=== PATIENT | female | born 1945 | race Caucasian/White ===

== ENCOUNTER 2021-03-08 19:40 | Emergency (ER) | payer OTHER ==
[~2021-03-08] VITALS: Ht 165.1 cm; Wt 64.4 kg
[2021-03-08 20:18] VITALS: BP 155/71
[2021-03-08] MEDS ORDERED: ACETAMINOPHEN 500 MG TABLET PO ONE (20:30)
== END 2021-03-08 22:54 | disposition home or self-care (01) ==
LOC: EDH 19:40
DX: S02.2XXA Fracture of nasal bones, initial encounter for closed fracture (principal); E11.9 Type 2 diabetes mellitus without complications; Z98.890 Other specified postprocedural states; Y08.89XA Assault by other specified means, initial encounter; Y93.89 Activity, other specified; Y92.89 Other specified places as the place of occurrence of the external cause; Y99.8 Other external cause status
CPT/HCPCS: 70450; 70486

== ENCOUNTER → 2021-04-27 | Outpatient (CLI) | payer OTHER ==
[~2021-04-27] MED LIST: IOHEXOL-350 75 ML VIAL IV ONE
== END | disposition home or self-care (01) ==
LOC: RAH 10:24
PROVIDERS: ATTEND Internal Medicine
DX: K57.30 Diverticulosis of large intestine without perforation or abscess without bleeding (principal); M51.35 Other intervertebral disc degeneration, thoracolumbar region; I70.0 Atherosclerosis of aorta
CPT/HCPCS: 74177; Q9967

== ENCOUNTER 2025-05-22 16:35 | Observation (INO) | payer OTHER ==
[~2025-05-22] VITALS: Ht 162.6 cm; Wt 60.3 kg
--- NOTE | 2025-05-22 16:47 | EKG ---
[facility] Test Date: 2025-05-22 Test Time: 16:41:15 Pat Name: KENROY LOCKE Department: EDH Room: ED Gender: F Chicken Tender: [id number] : 1945 Requested By: LEON MARIE Order Number: [id number] Reading MD: Efrain Dean Measurements Intervals [place] Rate: 80 P: 55 OH: 176 QRS: 37 QRSD: 80 T: 58 QT: 368 QTc: 424 Interpretive Statements Sinus rhythm No previous ECG available for comparison Electronically Signed On 05-24-2025 08:21:16 ANGULAR DEVELOPER by Efrain Dean Please click the below link to view image of tracing.
--- NOTE | 2025-05-22 16:51 | ERN ---
ED Note History of Present Illness Stated Complaint: ABNORMAL LABS, HIGH CALCIUM Chief Complaint: Abnormal Labs Time Seen by MD: 16:37 Time Seen by Midlevel: 16:40 Dictation: 79-year-old female coming in from [place] with complaints of feeling genera lized lethargy confusion, irritable, trouble concentrating. They did blood work and showed hypercalcemia at 13.2 . Was sent here for re-evaluation. Patient at this time denies any other complaints as far as chest pain, chest discomfort, fever, nausea and vomiting or diarrhea. Allergies: Coded Allergies: No Known Drug Allergies (Unverified Allergy, Unknown, 03/08/21) Past Medical History Past Medical History: Diabetes-Type II Additional Past Medical Hx: HX OF Falls Surgical History: Other Surgical History Other: KNEE SURGERY X 2 Social History: Negative Review of System Dictation Constitutional: Complaining of generalized fatigue Eyes: Negative for injury, pain,redness, and discharge ENT: Negative for injury,pain or swelling Cardiovascular: Negative for chest pain, palpitations, and edema Respiratory: Negative for shortness of breath, cough, and wheezing, Abdomen/GI: Negative for abdominal pain, nausea, vomiting, diarrhea, and constipation Back: Negative for injury and pain : Negative for injury, bleeding and discharge MS/Extremity: Negative for injury and deformity Skin: Negative for rash, and discoloration Neuro: Negative for headache, weakness, numbness, tingling, and seizure Psych: Negative for suicide ideation, homicidal ideation, and hallucinations Review of Systems: was completed Initial Vital Sign VS Vital Signs Date Time Temp Pulse Resp B/P (MAP) Pulse Ox O2 Delivery O2 Flow Rate FiO2 05/22/25 16:36 98.2 85 16 129/47 100 Room Air 05/22/25 18:15 0 21 Physical Exam Dictation General: awake, alert, NAD Head/Face: Normocephalic, atraumatic Eyes: PERRL, EOMI, vision at baseline ENT: oral cavity clear, TMs clear, no signs of infection Neck: Trachea midline, supple, no nuchal rigidity Cardiovascular: RRR, normal S1/S2, No MRGs, no JVD Respiratory: CTAB, no respiratory distress, No rales or wheezes Abdomen: Soft, non-tender, non-distended, normal bowel sounds, no guarding or rebound. Skin: Warm, dry, normal turgor, no rash MS/Extremity: Pulses equal, no cyanosis, neurovascular intact, FROM Neuro: COAx4, GCS 15, strength 5/5, CN 2-12 intact, normal cerebellar exam, normal gait, Psych: Normal behavior, mood, and affect normal Results (Laboratory/Radiology) Laboratory/Radiology Laboratory Tests Test 05/22/25 16:45 White Blood Count 8.7 K/uL (4.8-10.8) Red Blood Count 4.00 MIL/uL (4.00-5.50) Hemoglobin 12.0 g/dL (12.0-16.0) Hematocrit 36.3 % (36-48) Mean Corpuscular Volume 90.8 fL (79-99) Mean Corpuscular Hemoglobin 30.0 pg (27.0-33.0) Mean Corpuscular Hemoglobin Concent 33.1 g/dL (32.0-36.0) Red Cell Distribution Width 13.0 % (11.0-15.5) Platelet Count 280 K/uL (130-400) Mean Platelet Volume 9.7 fL (7.5-10.5) Immature Granulocyte % (Auto) 0.3 % (0-1) Neutrophils (%) (Auto) 65.9 % (40.0-77.0) Lymphocytes (%) (Auto) 17.9 % (21.0-51.0) L Monocytes (%) (Auto) 10.3 % (3.0-13.0) Eosinophils (%) (Auto) 5.0 % (0.0-8.0) Basophils (%) (Auto) 0.6 % (0.0-5.0) Neutrophils # (Auto) 5.7 K/uL (1.8-7.7) Lymphocytes # (Auto) 1.6 K/uL (1.0-4.8) Monocytes # (Auto) 0.9 K/uL (0.1-1.0) Eosinophils # (Auto) 0.43 K/uL (0.00-0.70) Basophils # (Auto) 0.05 K/uL (0.00-0.20) Absolute Immature Granulocyte (auto 0.03 K/uL (0-1) Nucleated Red Blood Cells 0.0 % (0.0-0.19) Sodium Level 137 mmol/L (136-145) Potassium Level 3.8 mmol/L (3.5-5.1) Chloride Level 99 mmol/L (101-111) L Carbon Dioxide Level 29 mmol/L (21-32) Blood Urea Nitrogen 35 mg/dL (7-18) H Creatinine 1.4 mg/dL (0.5-1.0) H Glomerular Filtration Rate Calc 38 mL/min (>90) Random Glucose 228 mg/dL (70-105) H Total Calcium 12.0 mg/dL (8.5-10.1) *H Labs Reviewed?: Yes ED Course ED Course Orders Procedure Category Date Status Time Cbc With Differential LAB 05/22/25 Complete 16:37 Basic Metabolic Panel LAB 05/22/25 Complete 16:37 Urinalysis Profile LAB 05/22/25 Logged 16:37 12 Lead Ekg Tracing- EKG 05/22/25 Complete Technical 16:37 0.9%Nacl 1000ml (Ns PHA 05/22/25 Complete 1000ml) 17:57 Current Medications Medications (Trade) Dose Ordered Sig/Marcial Route PRN Reason Start Time Stop Time Status Last Admin Dose Admin Sodium Chloride 1,000 ml @ 1,000 mls/hr Q1H STAT IV 05/22/25 17:57 05/22/25 18:56 DC Vital Signs Date Time Temp Pulse Resp B/P (MAP) Pulse Ox O2 Delivery O2 Flow Rate FiO2 05/22/25 18:15 97.9 77 18 135/54 98 Room Air* 0 21 05/22/25 16:36 98.2 85 16 129/47 100 Room Air Medical Decision Making MDM MDM: 79-year-old female coming in from [facility] with complaints of feeling gen eralized lethargy confusion, irritable, October concentrating. They did blood work and showed hypercalcemia at 13.2 . Was sent here for re-evaluation. Patient at this time denies any other complaints as far as chest pain, chest discomfort, fever, nausea and vomiting or diarrhea.CBC shows a leukocytosis, no anemia, no thrombocytopenia. Chemistry shows mild elevated creatinine 1.4, and calcium of 12. 1 L of NS ordered. Patient will be admitted for treatment of hypercalcemia. Differential diagnosis: Lab ear, hypercalcemia, dehydration, urinary tract infection Rationale: Tests considered and ordered secondary to shared decision making include: labs, ECG and radiology Previous outside records reviewed: Old ER visits. Risk of complication and/or morbidity or mortality of patient management: None Medications-Per medication reconciliation Need for hospitalization: Patient does meet criteria for hospitalization. Need for emergency major/minor surgery: No There are no social concerns with this patient. Prescription drug management Prescriptions will include symptomatic care Patient's prior external medical records from other ER visits were reviewed by me as indicated. Prior testing and results from previous visits were reviewed. Prior tests were taken into account with medical decision making and resource utilization, independent historian/historians were used to obtain complete [facility] history. I independently interpreted the test that were performed, results were reviewed by me and considered findings on radiology if ordered. Medical management and examination interpretation discussions were had by me with other qualified healthcare professionals as indicated for the patient's care. DX & DISP Disposition: Inpatient Departure Impression: Primary Impression: Hypercalcemia Condition: Stable Referrals: ALENA CHOWDHURY MD (PCP) I have reviewed the case, and I agree with, Diagnosis and Plan LEON MARIE [facility] May 22, 2025 16:51
[2025-05-22 16:52] LABS: IMMATURE GRANULOCYTE ABSOLUTE 0.03 K/uL (0-1); NUCLEATED RED BLOOD CELLS 0.0 % (0.0-0.19); PLATELET COUNT (AUTO) 280 K/uL (130-400); RED BLOOD CELL COUNT(AUTO) 4.00 MIL/uL (4.00-5.50); RED CELL DISTRIBUTION WIDTH 13.0 % (11.0-15.5); WHITE BLOOD COUNT (AUTO) 8.7 K/uL (4.8-10.8)
[2025-05-22 17:08] LABS: CREATININE 1.4 mg/dL (0.5-1.0); GLOMERULAR FILTR. RATE CALC 38.0 mL/min (>90); GLUCOSE,RANDOM 228.0 mg/dL (70-105); SODIUM SERUM 137.0 mmol/L (136-145); UREA NITROGEN, BLOOD 35.0 mg/dL (7-18)
[2025-05-22] MEDS: 0.9%NACL 1000ML 1,000 ML IV STA (19:54)
[2025-05-22 21:04] LABS: APPEARANCE,URINE CLEAR (CLEAR); GLUCOSE, URINE (UA) NEGATIVE (NEGATIVE); LEUKOCYTE ESTERASE ,URINE NEGATIVE Leu/uL (NEGATIVE); NITRATE,URINE NEGATIVE (NEGATIVE); OCCULT BLOOD,URINE NEGATIVE (NEGATIVE)
[2025-05-22 21:06] LABS: ADD UA MICROSCOPIC YES
[2025-05-22 21:07] LABS: HYALINE CASTS, URINE 0-1 /LPF (0-1 /LPF); SQUAMOUS EPITHELIAL CELL,UR RARE /HPF (0-2); WBC CLUMP RARE /HPF (0-1)
--- NOTE | 2025-05-22 21:20 | HP ---
[facility] HISTORY & PHYSICAL Date Patient Seen: May 22, 2025 Time of Visit: 21:14 Supervising Physician: Dr. William Mckenzie Primary Care Physician: Dr Rob Pacheco Outpatient Specialists: [ ] Inpatient Consults: [ ] PROBLEM LIST: Hypercalcemia, POA DM type 2, with hyperglycemia, poorly controlled, POA PLAN: Admit to medical-surgical floor VS per protocol Keep SBP less than 160 P.r.n. hydralazine labetalol Keep serum glucose less than 150 ISS and fingerstick per unit protocol Start NS at 125 cc/hour Complete bedrest for now Heart healthy diet Bilateral SCDs Facilitate order labs and imaging CBC, CMP, magnesium level daily HPI: 79-year-old female with past medical history of DM type 2 who presented to ED via private vehicle here for evaluation of elevated calcium level. Patient was seen and examined in ED with no relatives present at bedside. Apparently patient was sent to ER by his PCP for evaluation of hypercalcemia. In ED CBC was done showed no acute infection or anemia, her chemistry signific ant for calcium level above 12, her UA showed no acute infection. Patient denies any bone disease, or any history of cancer. Patient denies any headache, chest pain, shortness of breath, abdominal pain, bone pain, muscle ache, or flu- like symptoms. Patient also denies any history of smoking, alcohol intake, or illicit drug use. PAST MEDICAL HX: see above PAST SURGICAL HX: noncontributory SOCIAL HISTORY: No tobacco, ETOH, or illicit drug use Coded Allergies: No Known Drug Allergies (Unverified Allergy, Unknown, 03/08/21) REVIEW OF SYSTEMS: 12 point ROS reviewed with patient. Pertinent positives mentioned above. Otherwise negative. PHYSICAL EXAM: GENERAL: alert, weak, awake oriented x 3 HEENT: EOMI, Sclera non icteric, moist mucosa NECK: Supple, no JVD, trachea midline LUNGS: Clear breath sounds bilaterally. No wheezes HEART: Regular rate and rhythm. Normal S1 and S2, without murmurs ABD: Abdomen soft, nontender. Bowel sounds present EXT: No clubbing cyanosis or edema NEURO: Alert and oriented to person, follows commands Vital Signs (last 8hr) Date Time Temp Pulse Resp B/P (MAP) Pulse Ox O2 Delivery O2 Flow Rate FiO2 05/22/25 18:15 97.9 77 18 135/54 98 Room Air* 0 21 12/18/25 16:36 98.2 85 16 129/47 100 Room Air LABS: Hematology Labs: Test 05/22/25 16:45 Range/Units White Blood Count 8.7 4.8-10.8 K/uL Red Blood Count 4.00 4.00-5.50 MIL/uL Hemoglobin 12.0 12.0-16.0 g/dL Hematocrit 36.3 36-48 % Mean Corpuscular Volume 90.8 79-99 fL Mean Corpuscular Hemoglobin 30.0 27.0-33.0 pg Mean Corpuscular Hemoglobin Concent 33.1 32.0-36.0 g/dL Red Cell Distribution Width 13.0 11.0-15.5 % Platelet Count 280 130-400 K/uL Mean Platelet Volume 9.7 7.5-10.5 fL Immature Granulocyte % (Auto) 0.3 0-1 % Neutrophils (%) (Auto) 65.9 40.0-77.0 % Lymphocytes (%) (Auto) 17.9 L 21.0-51.0 % Monocytes (%) (Auto) 10.3 3.0-13.0 % Eosinophils (%) (Auto) 5.0 0.0-8.0 % Basophils (%) (Auto) 0.6 0.0-5.0 % Neutrophils # (Auto) 5.7 1.8-7.7 K/uL Lymphocytes # (Auto) 1.6 1.0-4.8 K/uL Monocytes # (Auto) 0.9 0.1-1.0 K/uL Eosinophils # (Auto) 0.43 0.00-0.70 K/uL Basophils # (Auto) 0.05 0.00-0.20 K/uL Absolute Immature Granulocyte (auto 0.03 0-1 K/uL Nucleated Red Blood Cells 0.0 0.0-0.19 % Chemistry Labs: Test 05/22/25 16:45 Range/Units Sodium Level 137 136-145 mmol/L Potassium Level 3.8 3.5-5.1 mmol/L Chloride Level 99 L 101-111 mmol/L Carbon Dioxide Level 29 21-32 mmol/L Blood Urea Nitrogen 35 H 7-18 mg/dL Creatinine 1.4 H 0.5-1.0 mg/dL Glomerular Filtration Rate Calc 38 >90 mL/min Random Glucose 228 H 70-105 mg/dL Total Calcium 12.0 *H 8.5-10.1 mg/dL DIAGNOSTICS / RADIOLOGY RESULTS: [ ] PLAN NEURO: Minimize central acting medications as possible. Maintain fall precautions, adequate lighting during the day PULMONARY: Supplemental 02 as needed. Maintain aspiration precautions at all times CARDIOVASCULAR: Follow hemodynamics. Vital signs per facility protocol GI & NUTRITION: Continue with nutritional support. Continue stool softeners and laxatives as needed. KIDNEYS & ELECTROLYTES: Strict monitoring of intake, output and overall fluid balance. Avoid nephrotoxic medications to the extent possible. Medications to be dosed according to renal function. Monitor electrolytes and replace as needed ENDOCRINE: Maintain blood glucose between 100-180 at all times. Hypoglycemia protocol in place INFECTIOUS DISEASE: Trend temperature, WBC and procalcitonin level Follow cultures, deescalate antibiotics as soon as possible. Panculture if new onset fever ONCOLOGY/HEMATOLOGY/COAGULATION: Monitor for s/s of bleeding Monitor hemoglobin, coagulation studies as needed SKIN: Pressure ulcer prevention per facility protocol Specialty mattress ORTHO/REHAB: Continue PT/OT Prophylaxis: Continue GI and DVT prophylaxis Code Status: Full Resuscitation Disposition: TBD Supervising physician: MIRNA Byrne AGACNP May 22, 2025 21:19
[2025-05-22] MEDS ORDERED: HYDROcodone/APAP 5/325 1 TAB TABLET PO PRN ×2 (21:30)
[2025-05-22] MEDS ORDERED: ALBUTEROL 0.083% 2.5 MG/3 ML INH IH PRN (21:30)
[2025-05-22] MEDS: 0.9%NACL 1000ML 1,000 ML IV SCH (22:12)
[2025-05-22] MEDS ORDERED: MECO10005 PO (22:53)
[2025-05-22] MEDS ORDERED: DULO60CA64 PO (22:53)
[2025-05-22] MEDS ORDERED: GLIP5TAB15 PO (22:53)
[2025-05-22] MEDS ORDERED: CEPH500C2 PO (22:53)
[2025-05-22] MEDS ORDERED: METF-446 PO (22:53)
[2025-05-22] MEDS ORDERED: SIMV-46 PO (22:53)
[2025-05-22] MEDS ORDERED: LEVO88TA7 PO (22:53)
[2025-05-23 06:40] LABS: CREATININE 1.2 mg/dL (0.5-1.0); GLOMERULAR FILTR. RATE CALC 46.0 mL/min (>90); GLUCOSE,RANDOM 171.0 mg/dL (70-105); PHOSPHORUS 2.6 mg/dL (2.5-4.9); SODIUM SERUM 137.0 mmol/L (136-145); UREA NITROGEN, BLOOD 27.0 mg/dL (7-18)
[2025-05-23 06:45] LABS: IMMATURE GRANULOCYTE ABSOLUTE 0.02 K/uL (0-1); NUCLEATED RED BLOOD CELLS 0.0 % (0.0-0.19); PLATELET COUNT (AUTO) 211 K/uL (130-400); RED BLOOD CELL COUNT(AUTO) 3.40 MIL/uL (4.00-5.50); RED CELL DISTRIBUTION WIDTH 13.1 % (11.0-15.5); WHITE BLOOD COUNT (AUTO) 8.7 K/uL (4.8-10.8)
[2025-05-23] MEDS: MAGNESIUM 2GM PREMIX 50ML 50 ML IV PRN (07:13)
[2025-05-23 07:27] VITALS: PULSE 83; RESP 18; O2SAT 98
--- NOTE | 2025-05-23 07:48 | NUR ---
PATIENT REFUSED BLOOD GLUCOSE CHECK. DID NOT WANT HER FINGERS POKED. PT STATES "I WANT ANOTHER FORM CHECKING MY GLUCOSE, I DONT WANT MY FINGERS TO GET POKED".
[2025-05-23] MEDS: ASCORBIC ACID 500 MG TAB PO SCH (08:42)
--- NOTE | 2025-05-23 10:03 | NUR ---
DCP:HOME Pt currently lives at home with her . Pt denies having any DME, home health, or provider services. Pt states that prior to coming to the hospital pt was able to complete ADLs independently. PCP is Dr Irma Oro and uses [facility] for any RX needs. At DC pt will want to go home and family can assist with transportation.
--- NOTE | 2025-05-23 13:53 | DS ---
[facility] DISCHARGE SUMMARY Date Patient Seen: May 23, 2025 Time of Visit: 13:49 Supervising Physician: Dr Iverson Primary Care Physician: Dr Rob Pacheco Outpatient Specialists: [ ] Inpatient Consults: [ ] PROBLEM LIST: Hypercalcemia, POA 2/2 dehydration - resolved DM type 2, with hyperglycemia, poorly controlled, POA HOSPITAL COURSE: HPI (per admitting provider) 79-year-old female with past medical history of DM type 2 who presented to ED via private vehicle here for evaluation of elevated calcium level. Patient was seen and examined in ED with no relatives present at bedside. Apparently patient was sent to ER by his PCP for evaluation of hypercalcemia. In ED CBC was done showed no acute infection or anemia, her chemistry significant for calcium level above 12, her UA showed no acute infection. Patient denies any bone disease, or any history of cancer. Patient denies any headache, chest pain, shortness of breath, abdominal pain, bone pain, muscle ache, or flu-like symptoms. Patient also denies any history of smoking, alcohol intake, or illicit drug use. Today patient is seen sitting up in a stretcher in the ED with no signs of acute distress. Patient is awake alert and oriented x3. Patient remains on room air denies chest discomfort, chest pain or dyspnea. Patient was treated with IV fluids overnight and responded well. Patient's calcium level decreased to 10 as per most recent labs. Patient's PTH was within normal limits. Patient's TSH was within normal limits. Patient has been advised and encouraged to increase fluid intake to help prevent recurrent dehydration. Patient verbalized understanding. Patient has been advised to follow up with PCP in the next 1-2 days. Patient reported that she takes iaae-bje-pehwlea calcium tablets sometimes. Patient has been advised to discontinue calcium tabs until follow up by her PCP. Patient verbalized understanding. Vital signs are stable. Labs are within normal limits. Medication reconciliation has been completed. Education regarding current diagnosis has been provided to the patient. All questions have been answered. Patient to be discharged home. The patient was treated for the following problems: ACTIVE PROBLEM LIST FOR THE HOSPITALIZATION: Hypercalcemia, POA 2/2 dehydration - resolved DM type 2, with hyperglycemia, poorly controlled, POA CHRONIC PROBLEMS: continue previous management per PCP unless otherwise indicated BRUSHER TENDER FINDINGS/RECOMMENDATIONS: [ ] PROCEDURES: as mentioned above DISCHARGE MEDICATIONS: See DC med rec Pt hemodynamically stable and afebrile at time of discharge. PCP notified of patients admission, hospital course and discharge. Continued Medications: Duloxetine HCl (Duloxetine HCl) 60 Mg Capsule.dr 1 CAP PO DAILY Glipizide (Glipizide) 5 Mg Tablet 1 TAB PO DAILY Levothyroxine Sodium (Levothyroxine Sodium) 88 Mcg Tablet 1 TAB PO DAILY Mecobalamin (B12 Active) 1,000 Mcg Tab.chew 1 TAB PO QWEEK for 30 Days, #30 TAB 0 Refills Metformin HCl (Metformin HCl) 1,000 Mg Tablet 1 TAB PO DAILYDINNER Simvastatin (Simvastatin) 40 Mg Tablet 1 TAB PO HS Discontinued Medications: Cephalexin (Cephalexin) 500 Mg Capsule 1 CAP PO BID PHYSICAL EXAM: GENERAL: alert, weak, awake oriented x 3 HEENT: EOMI, Sclera non icteric, moist mucosa NECK: Supple, no JVD, trachea midline LUNGS: Clear breath sounds bilaterally. No wheezes HEART: Regular rate and rhythm. Normal S1 and S2, without murmurs ABD: Abdomen soft, nontender. Bowel sounds present EXT: No clubbing cyanosis or edema NEURO: Alert and oriented to person, follows commands FOLLOW-UP: Follow-up with PCP in 2-3 days RECOMMENDATIONS: See Discharge Instructions This case was seen and discussed with my supervising physician. More than 30 minutes spent on discharge process, including evaluation of the patient, discussion with nursing staff, medication reconciliation and follow-up appointments ATTESTATION BY PHYSICIAN I attest that I reviewed and discussed the case with the Physician Sign Board Erector as well as agree with the Physician Sign Board Erector's findings, plans of care, and documentation above. William Trinidad MD, ECTOR N FNP May 23, 2025 13:53
[2025-05-23 15:14] VITALS: BP 120/48; PULSE 76; RESP 15; TEMP 98.2; O2SAT 97
--- NOTE | 2025-05-23 18:17 | NUR ---
PATIENT BEING DISCHARGED. PATIENT HAD A STEADY AND BALANCE GAIT. PATIENT DID NOT SHOW SIGNS OF DISTRESS. PATIENT IS ALERT AND ORIENTED X4. PATIENT DID NOT USE ANY AMBULATORY AID WHILE WALKING OUT THE DOOR. PATIENT DID NOT WANT TO WAIT IN THE ROOM UNTIL HER TRANSPORTATION ARRIVED. PATIENT WANTED TO WAIT IN THE LOBBY.
== END 2025-05-23 18:16 | disposition home or self-care (01) ==
LOC: EDH 16:35 → INTOOBSV 21:07 → UNDOADMOB 21:07 → EDHIP 21:07
PROVIDERS: ADMIT Internal Medicine Critical Care Medicine; ATTEND Internal Medicine Critical Care Medicine
DX: E83.52 Hypercalcemia (principal); E11.65 Type 2 diabetes mellitus with hyperglycemia; D72.829 Elevated white blood cell count, unspecified; R79.89 Other specified abnormal findings of blood chemistry; E86.0 Dehydration; R53.83 Other fatigue; Z79.899 Other long term (current) drug therapy; Z98.890 Other specified postprocedural states
CPT/HCPCS: 96361 ×3; 99284; 83036; 80048 ×2; 85025 ×2; 83970; 81001; 36415 ×2; 93005; 96366; 82040; 84443; 83735; 84100; 82948; 82306; 96365; J1815; G0378 ×6; J3475; 99285